=== PATIENT | female | born 1970 | race Caucasian/White ===

== ENCOUNTER 2017-02-22 14:03 | Inpatient (IN) | payer BC ==
[~2017-02-22] VITALS: Ht 157.5 cm; Wt 80.5 kg
[2017-02-22 15:18] LABS: EOSINOPHIL (%) 0.3 % (0-5); EOSINOPHIL COUNT 0.1 K/uL (0-0.3); HEMATOCRIT 31.2 % (36.0-46.0); IMMATURE GRANULOCYTE (%) 0.5 % (0.0-0.7); IMMATURE GRANULOCYTE COUNT 0.1 K/uL; INSTRUMENT ABS NEUTROPHIL CT 14.4 K/uL; LYMPHOCYTE COUNT 0.7 K/uL (1.0-2.8); MCH 28.4 PG (29.0-34.0); MCHC 34.3 G/DL (30.0-36.0); MCV 82.8 FL (83-99); MONOCYTE (%) 5.3 % (3-12); MONOCYTE COUNT 0.9 K/uL (0-0.8); NEUTROPHIL (%) 89.3 % (45-76); NEUTROPHIL COUNT 14.4 K/uL (1.8-6.4); PLATELET COUNT 227 K/uL (156-360); RBC DIS.WIDTH-CV 12.8 % (11.8-14.6); RBC DIS.WIDTH-SD 38.5 % (39-53); RED BLOOD COUNT 3.77 M/uL (3.80-5.20); WHITE BLOOD COUNT 16.1 K/uL (4.1-10.2)
[2017-02-22 15:29] LABS: CHLORIDE 82 mEq/L (99-109); POTASSIUM 4.7 mEq/L (3.7-5.4); SODIUM 140 mEq/L (136-147)
[2017-02-22 15:31] LABS: GLUCOSE 139 mg/dL (70-99)
[2017-02-22 15:32] LABS: ANION GAP 48 MEQ/L (2-14)
[2017-02-22 15:33] LABS: TOTAL BILIRUBIN 0.5 mg/dL (0.0-1.0)
[2017-02-22 15:34] LABS: ALKALINE PHOSPHATASE 48 IU/L (3-129)
[2017-02-22 15:39] LABS: GFR ESTIMATE (CALCULATED) 1 mL/min/
[2017-02-22 15:40] LABS: TROP-I INTERPRETATION INDETERMINATE; TROPONIN-I 0.47 ng/mL (0.0-0.30)
[2017-02-22 15:45] LABS: QUANTITATIVE HCG < 4.0 MIU/ML
[2017-02-22 16:18] LABS: INFLUENZA A VIRAL ANTIGEN NEGATIVE; INFLUENZA B VIRAL ANTIGEN NEGATIVE
[2017-02-22 16:24] LABS: UREA NITROGEN (BUN) 302 mg/dL (9-23)
[2017-02-22] MEDS ORDERED: SUCRALFATE1 GM PO (16:49)
[2017-02-22] MEDS ORDERED: HYDROCHLOROTHIA25 MG PO (16:50)
[2017-02-22] MEDS ORDERED: PRINIVIL10 MG PO (16:50)
[2017-02-22] MEDS ORDERED: ASPERCREME HE70.8 GM TP (16:51)
[2017-02-22] MEDS ORDERED: SALONPAS LARGE1 EACH TD (16:51)
[2017-02-22] MEDS ORDERED: NEOSPORIN + P14.2 GM TP (16:52)
[2017-02-22 18:44] LABS: ADD MIUA? YES; BILIRUBIN NEGATIVE; BLOOD MODERATE; GLUCOSE (STRIP) NEGATIVE; KETONES NEGATIVE; LEUKOCYTES MODERATE; NITRITE NEGATIVE; PROTEIN (STRIP) 100; SPECIFIC GRAVITY 1.018 (1.000-1.030); UROBILINOGEN 0.2 MG/DL (0.2-1.0)
[2017-02-22 18:47] LABS: COLOR DK YELLOW ((YELLOW))
[2017-02-22 19:46] LABS: BACTERIA 3+ /HPF; EPITHELIAL CELLS NONE SEEN /HPF; MUCUS NONE SEEN /LPF; RED BLOOD CELLS 30-40 /HPF (0-5); UCUL ADDED? YES; WHITE BLOOD CELLS TNTC /HPF (0-5)
[2017-02-22 22:50] VITALS: BP 110/55
[2017-02-23 07:51] LABS: POTASSIUM 3.8 mEq/L (3.7-5.4); SODIUM 147 mEq/L (136-147)
[2017-02-23 07:54] LABS: ANION GAP 33 MEQ/L (2-14)
[2017-02-23 07:55] LABS: TROP-I INTERPRETATION INDETERMINATE
[2017-02-23 07:57] LABS: GFR ESTIMATE (CALCULATED) 1 mL/min/
[2017-02-23 07:59] LABS: URIC ACID 21.3 mg/dL (3.1-9.2)
[2017-02-23 08:05] LABS: CHLORIDE 104 mEq/L (99-109); GLUCOSE 72 mg/dL (70-99)
[2017-02-23 08:09] LABS: Estimated Average Glucose 143 mg/dL (70-123); HEMOGLOBIN A1c (GLYCOHEMOGLOB) 6.6 % HGB (Below 5.7)
[2017-02-23 08:10] VITALS: BP 129/61
[2017-02-23 08:15] LABS: HEMATOCRIT 24.3 % (36.0-46.0); MCH 28.9 PG (29.0-34.0); MCHC 33.7 G/DL (30.0-36.0); MCV 85.6 FL (83-99); RBC DIS.WIDTH-CV 12.9 % (11.8-14.6); RBC DIS.WIDTH-SD 40.5 % (39-53); WHITE BLOOD COUNT 13.7 K/uL (4.1-10.2)
[2017-02-23 08:19] LABS: RED BLOOD COUNT 2.84 M/uL (3.80-5.20)
[2017-02-23 08:22] LABS: POTASSIUM 3.8 mEq/L (3.7-5.4); SODIUM 147 mEq/L (136-147)
[2017-02-23 08:25] LABS: ANION GAP 33 MEQ/L (2-14)
[2017-02-23 08:26] LABS: CHLORIDE 104 mEq/L (99-109); GLUCOSE 72 mg/dL (70-99)
[2017-02-23 08:28] LABS: GFR ESTIMATE (CALCULATED) 1 mL/min/
[2017-02-23 08:38] LABS: INTACT PARATHYROID HORMONE 799 pg/mL (10-69)
[2017-02-23 09:09] LABS: C-REACTIVE PROTEIN 5.7 MG/L (0-10); IRON 131 MCG/DL (35-150); SAMPLE HEMOLYSIS CHECK 0; SAMPLE ICTERIC CHECK 0; SAMPLE LIPEMIA CHECK 0
[2017-02-23 09:26] LABS: FERRITIN 947 NG/ML (10-291)
[2017-02-23 09:36] LABS: MEAN PLAT.VOLUME 12.5 uM^3 (9.5-12.4); PLAT.SUFFICIENCY ADEQUATE
[2017-02-23 09:41] LABS: PLATELET COUNT 152 K/uL (156-360)
[2017-02-23 09:50] LABS: UREA NITROGEN (BUN) 228 mg/dL (9-23)
[2017-02-23 09:52] LABS: UREA NITROGEN (BUN) 228 mg/dL (9-23)
[2017-02-23 10:36] LABS: HPCA INDEX 0.11
[2017-02-23 11:04] LABS: HBSG INDEX 0.23
[2017-02-23 11:05] LABS: HEPATITIS B SURFACE ANTIBODY Nonreactive
[2017-02-23 11:47] LABS: ANTI-HEPATITIS B CORE (TOTAL) Nonreactive; HBCT INDEX 0.15
[2017-02-23 12:15] VITALS: BP 138/62
[2017-02-23 16:38] VITALS: BP 135/63
[2017-02-23 19:30] LABS: ANION GAP 36 MEQ/L (2-14); CHLORIDE 104 MEQ/L (99-109); SAMPLE HEMOLYSIS CHECK 1; SAMPLE ICTERIC CHECK 0; SAMPLE LIPEMIA CHECK 0; SODIUM 149 MEQ/L (136-147)
[2017-02-23 19:31] LABS: GLUCOSE 98 mg/dL (70-99)
[2017-02-23 19:32] LABS: GFR ESTIMATE (CALCULATED) 2 mL/min/; UREA NITROGEN (BUN) 255 mg/dL (9-23)
[2017-02-23 19:41] VITALS: BP 147/67
[2017-02-24 00:24] VITALS: BP 117/56
[2017-02-24 04:51] VITALS: BP 129/56
[2017-02-24 07:13] VITALS: BP 138/64
[2017-02-24 08:14] LABS: EOSINOPHIL COUNT 0.4 K/uL (0-0.3); HEMATOCRIT 24.2 % (36.0-46.0); IMMATURE GRANULOCYTE (%) 0.8 % (0.0-0.7); IMMATURE GRANULOCYTE COUNT 0.1 K/uL; INSTRUMENT ABS NEUTROPHIL CT 7.7 K/uL; LYMPHOCYTE COUNT 0.4 K/uL (1.0-2.8); MCH 29.2 PG (29.0-34.0); MCHC 34.3 G/DL (30.0-36.0); MCV 85.2 FL (83-99); MEAN PLAT.VOLUME 12.8 uM^3 (9.5-12.4); MONOCYTE (%) 7.1 % (3-12); MONOCYTE COUNT 0.7 K/uL (0-0.8); NEUTROPHIL (%) 83.8 % (45-76); NEUTROPHIL COUNT 7.7 K/uL (1.8-6.4); PLATELET COUNT 136 K/uL (156-360); RED BLOOD COUNT 2.84 M/uL (3.80-5.20)
[2017-02-24 08:18] LABS: ANION GAP 32 MEQ/L (2-14); CHLORIDE 104 MEQ/L (99-109); GLUCOSE 140 mg/dL (70-99); MAGNESIUM 2.4 mg/dl (1.3-2.7); SAMPLE HEMOLYSIS CHECK 0; SAMPLE ICTERIC CHECK 0; SAMPLE LIPEMIA CHECK 0; SODIUM 154 MEQ/L (136-147)
[2017-02-24 08:19] LABS: GFR ESTIMATE (CALCULATED) 2 mL/min/; POTASSIUM 2.7 MEQ/L (3.7-5.4); UREA NITROGEN (BUN) 228 mg/dL (9-23)
[2017-02-24 08:23] LABS: WHITE BLOOD COUNT 9.2 K/uL (4.1-10.2)
[2017-02-24 10:05] LABS: HPCA INDEX 0.11
[2017-02-24 10:06] LABS: ANTI-HEPATITIS A VIRUS (IGM) Nonreactive; ANTI-HEPATITIS B CORE (IGM) Nonreactive; HAV INDEX 0.11; HBC IgM INDEX 0.06
[2017-02-24 11:49] VITALS: BP 129/69
[2017-02-24 15:34] VITALS: BP 133/62
[2017-02-24 17:41] LABS: CHLORIDE 111 mEq/L (99-109); POTASSIUM 3.1 mEq/L (3.7-5.4); SODIUM 156 mEq/L (136-147)
[2017-02-24 17:42] LABS: GLUCOSE 116 mg/dL (70-99)
[2017-02-24 17:44] LABS: ANION GAP 25 MEQ/L (2-14)
[2017-02-24 17:46] LABS: GFR ESTIMATE (CALCULATED) 3 mL/min/
[2017-02-24 17:58] LABS: UREA NITROGEN (BUN) 185 mg/dL (9-23)
[2017-02-24 20:11] VITALS: BP 134/61
[2017-02-25 01:06] VITALS: BP 110/58
[2017-02-25 05:30] VITALS: BP 141/82
[2017-02-25 08:41] LABS: EOSINOPHIL (%) 4.2 % (0-5); EOSINOPHIL COUNT 0.4 K/uL (0-0.3); HEMATOCRIT 23.7 % (36.0-46.0); IMMATURE GRANULOCYTE COUNT 0.1 K/uL; INSTRUMENT ABS NEUTROPHIL CT 8.4 K/uL; LYMPHOCYTE COUNT 0.6 K/uL (1.0-2.8); MCH 29.1 PG (29.0-34.0); MCHC 32.5 G/DL (30.0-36.0); MEAN PLAT.VOLUME 12.4 uM^3 (9.5-12.4); MONOCYTE (%) 8.1 % (3-12); MONOCYTE COUNT 0.9 K/uL (0-0.8); NEUTROPHIL (%) 80.5 % (45-76); NEUTROPHIL COUNT 8.4 K/uL (1.8-6.4); PLATELET COUNT 117 K/uL (156-360); RBC DIS.WIDTH-CV 13.5 % (11.8-14.6); RBC DIS.WIDTH-SD 44.1 % (39-53); RED BLOOD COUNT 2.65 M/uL (3.80-5.20); WHITE BLOOD COUNT 10.5 K/uL (4.1-10.2)
[2017-02-25 08:43] LABS: MCV 89.4 FL (83-99)
[2017-02-25 08:54] LABS: ANION GAP 21 MEQ/L (2-14); CHLORIDE 111 MEQ/L (99-109); GLUCOSE 93 mg/dL (70-99); SAMPLE HEMOLYSIS CHECK 0; SAMPLE ICTERIC CHECK 0; SAMPLE LIPEMIA CHECK 0; SODIUM 151 MEQ/L (136-147)
[2017-02-25 08:55] LABS: GFR ESTIMATE (CALCULATED) 4 mL/min/; MAGNESIUM 1.5 mg/dl (1.3-2.7); POTASSIUM 3.8 MEQ/L (3.7-5.4); UREA NITROGEN (BUN) 145 mg/dL (9-23)
[2017-02-25 09:00] VITALS: BP 139/70
[2017-02-25 18:55] LABS: CHLORIDE 117 mEq/L (99-109); POTASSIUM 3.9 mEq/L (3.7-5.4); SODIUM 151 mEq/L (136-147)
[2017-02-25 18:57] LABS: GLUCOSE 94 mg/dL (70-99)
[2017-02-25 18:58] LABS: ANION GAP 16 MEQ/L (2-14)
[2017-02-25 19:01] LABS: GFR ESTIMATE (CALCULATED) 6 mL/min/
[2017-02-25 19:04] LABS: UREA NITROGEN (BUN) 121 mg/dL (9-23)
[2017-02-25 20:00] VITALS: BP 148/77
[2017-02-25 23:25] VITALS: BP 153/75
[2017-02-26 03:31] VITALS: BP 142/74
[2017-02-26 08:25] VITALS: BP 121/57
[2017-02-26 08:44] LABS: EOSINOPHIL (%) 4.4 % (0-5); EOSINOPHIL COUNT 0.5 K/uL (0-0.3); HEMATOCRIT 24.4 % (36.0-46.0); IMMATURE GRANULOCYTE (%) 1.8 % (0.0-0.7); IMMATURE GRANULOCYTE COUNT 0.2 K/uL; INSTRUMENT ABS NEUTROPHIL CT 8.4 K/uL; LYMPHOCYTE COUNT 0.8 K/uL (1.0-2.8); MCH 28.6 PG (29.0-34.0); MCHC 31.6 G/DL (30.0-36.0); MCV 90.7 FL (83-99); MEAN PLAT.VOLUME 12.3 uM^3 (9.5-12.4); MONOCYTE (%) 7.5 % (3-12); MONOCYTE COUNT 0.8 K/uL (0-0.8); NEUTROPHIL (%) 78.6 % (45-76); NEUTROPHIL COUNT 8.4 K/uL (1.8-6.4); PLATELET COUNT 117 K/uL (156-360); RBC DIS.WIDTH-CV 13.7 % (11.8-14.6); RBC DIS.WIDTH-SD 45.6 % (39-53); RED BLOOD COUNT 2.69 M/uL (3.80-5.20); WHITE BLOOD COUNT 10.7 K/uL (4.1-10.2)
[2017-02-26 08:56] LABS: CHLORIDE 118 mEq/L (99-109); POTASSIUM 3.8 mEq/L (3.7-5.4); SODIUM 148 mEq/L (136-147)
[2017-02-26 08:57] LABS: MAGNESIUM 1.4 mg/dL (1.3-2.7)
[2017-02-26 08:59] LABS: GLUCOSE 93 mg/dL (70-99)
[2017-02-26 09:00] LABS: ANION GAP 13 MEQ/L (2-14)
[2017-02-26 09:03] LABS: UREA NITROGEN (BUN) 93 mg/dL (9-23)
[2017-02-26 09:07] LABS: GFR ESTIMATE (CALCULATED) 9 mL/min/
[2017-02-26 11:33] LABS: ANTI-NUCLEAR AB SCRN/RFLX(ANA) NONREACTIVE (NONREACTIVE)
[2017-02-26 12:22] VITALS: BP 132/69
[2017-02-26 16:06] VITALS: BP 119/58
[2017-02-26 16:18] LABS: CHLORIDE 114 mEq/L (99-109); POTASSIUM 4.2 mEq/L (3.7-5.4); SODIUM 146 mEq/L (136-147)
[2017-02-26 16:20] LABS: GLUCOSE 104 mg/dL (70-99)
[2017-02-26 16:21] LABS: ANION GAP 13 MEQ/L (2-14)
[2017-02-26 16:24] LABS: GFR ESTIMATE (CALCULATED) 11 mL/min/; UREA NITROGEN (BUN) 80 mg/dL (9-23)
[2017-02-26 20:00] VITALS: BP 165/75
[2017-02-26 23:55] VITALS: BP 133/60
[2017-02-27] VITALS (7 sets, daily range): BP systolic 132–145; BP diastolic 60–95
[2017-02-27 04:50] LABS: INTERNAL CONTROL VALID? YES
[2017-02-27 05:32] LABS: C DIFF TOXIN NEGATIVE (NEGATIVE)
[2017-02-27 05:33] LABS: PROBE CHECK PASS; SPECIMEN PROCESSING CONTROL PASS
[2017-02-27 06:11] LABS: HEMATOCRIT 24.5 % (36.0-46.0); MCH 29.3 PG (29.0-34.0); MCHC 31.8 G/DL (30.0-36.0); MCV 92.1 FL (83-99); NRBC (%) 0.3 /100 WBC (0-0); RBC DIS.WIDTH-CV 13.9 % (11.8-14.6); RBC DIS.WIDTH-SD 46.3 % (39-53); RED BLOOD COUNT 2.66 M/uL (3.80-5.20); WHITE BLOOD COUNT 9.4 K/uL (4.1-10.2)
[2017-02-27 06:46] LABS: CHLORIDE 116 mEq/L (99-109); SODIUM 146 mEq/L (136-147)
[2017-02-27 06:48] LABS: GLUCOSE 96 mg/dL (70-99)
[2017-02-27 06:49] LABS: MAGNESIUM 1.9 mg/dL (1.3-2.7)
[2017-02-27 06:50] LABS: ANION GAP 14 MEQ/L (2-14)
[2017-02-27 06:52] LABS: GFR ESTIMATE (CALCULATED) 15 mL/min/
[2017-02-27 06:53] LABS: UREA NITROGEN (BUN) 63 mg/dL (9-23)
[2017-02-27 07:55] LABS: MEAN PLAT.VOLUME 12.5 uM^3 (9.5-12.4); PLAT.SUFFICIENCY DECREASED; PLATELET COUNT 103 K/uL (156-360)
[2017-02-28 03:39] VITALS: BP 146/65
[2017-02-28 06:45] VITALS: BP 141/69
[2017-02-28 08:32] LABS: HEMATOCRIT 25.6 % (36.0-46.0); MCH 28.3 PG (29.0-34.0); MCHC 30.5 G/DL (30.0-36.0); MCV 92.8 FL (83-99); MEAN PLAT.VOLUME 11.9 uM^3 (9.5-12.4); NRBC (%) 0.9 /100 WBC (0-0); PLATELET COUNT 129 K/uL (156-360); RBC DIS.WIDTH-CV 14.2 % (11.8-14.6); RBC DIS.WIDTH-SD 47.8 % (39-53); RED BLOOD COUNT 2.76 M/uL (3.80-5.20); WHITE BLOOD COUNT 8.8 K/uL (4.1-10.2)
[2017-02-28 09:38] LABS: ANION GAP 15 MEQ/L (2-14); CHLORIDE 115 MEQ/L (99-109); GLUCOSE 95 mg/dL (70-99); MAGNESIUM 1.4 mg/dl (1.3-2.7); SAMPLE HEMOLYSIS CHECK 0; SAMPLE ICTERIC CHECK 0; SAMPLE LIPEMIA CHECK 0; SODIUM 150 MEQ/L (136-147); UREA NITROGEN (BUN) 42 mg/dL (9-23)
[2017-02-28 09:40] LABS: GFR ESTIMATE (CALCULATED) 19 mL/min/; POTASSIUM 3.6 MEQ/L (3.7-5.4)
[2017-02-28 12:09] VITALS: BP 129/66
[2017-02-28 17:12] VITALS: BP 130/68
[2017-02-28 19:12] VITALS: BP 132/65
[2017-02-28 23:33] VITALS: BP 118/58
[2017-03-01 03:39] VITALS: BP 153/68
[2017-03-01 06:52] LABS: HEMATOCRIT 25.6 % (36.0-46.0); MCH 28.4 PG (29.0-34.0); MCHC 30.9 G/DL (30.0-36.0); MCV 92.1 FL (83-99); MEAN PLAT.VOLUME 11.7 uM^3 (9.5-12.4); NRBC (%) 1.1 /100 WBC (0-0); RBC DIS.WIDTH-CV 14.6 % (11.8-14.6); RBC DIS.WIDTH-SD 48.9 % (39-53); RED BLOOD COUNT 2.78 M/uL (3.80-5.20)
[2017-03-01 06:57] LABS: PLATELET COUNT 177 K/uL (156-360); WHITE BLOOD COUNT 11.8 K/uL (4.1-10.2)
[2017-03-01 07:16] LABS: ANION GAP 14 MEQ/L (2-14); CHLORIDE 112 MEQ/L (99-109); GFR ESTIMATE (CALCULATED) 23 mL/min/; GLUCOSE 105 mg/dL (70-99); POTASSIUM 3.7 MEQ/L (3.7-5.4); SAMPLE HEMOLYSIS CHECK 0; SAMPLE ICTERIC CHECK 0; SAMPLE LIPEMIA CHECK 0; SODIUM 145 MEQ/L (136-147); UREA NITROGEN (BUN) 31 mg/dL (9-23)
[2017-03-01 07:30] VITALS: BP 125/78
== END 2017-03-01 12:43 | disposition home or self-care (01) | DRG 683 ==
LOC: EME 14:03 → EDOF 21:03 → 4EAST 21:03 → 2EAST 02-27 13:09
PROVIDERS: Emergency Medicine; Hospitalist; Internal Medicine; Internal Medicine Nephrology; Nurse Practitioner Adult Health
DX: N17.9 Acute kidney failure, unspecified (principal); E66.9 Obesity, unspecified; F05 Delirium due to known physiological condition; I70.1 Atherosclerosis of renal artery; M19.90 Unspecified osteoarthritis, unspecified site; F41.9 Anxiety disorder, unspecified; L40.9 Psoriasis, unspecified; R01.1 Cardiac murmur, unspecified; I87.2 Venous insufficiency (chronic) (peripheral); I12.9 Hypertensive chronic kidney disease with stage 1 through stage 4 chronic kidney disease, or unspecified chronic kidney disease; N18.9 Chronic kidney disease, unspecified; N39.0 Urinary tract infection, site not specified; Z91.19 Patient's noncompliance with other medical treatment and regimen; E87.8 Other disorders of electrolyte and fluid balance, not elsewhere classified; I95.9 Hypotension, unspecified; E87.4 Mixed disorder of acid-base balance; D63.1 Anemia in chronic kidney disease; Z91.15 Patient's noncompliance with renal dialysis; E83.51 Hypocalcemia; E79.0 Hyperuricemia without signs of inflammatory arthritis and tophaceous disease; E87.0 Hyperosmolality and hypernatremia; E87.6 Hypokalemia; L27.0 Generalized skin eruption due to drugs and medicaments taken internally; B96.1 Klebsiella pneumoniae [K. pneumoniae] as the cause of diseases classified elsewhere; B96.20 Unspecified Escherichia coli [E. coli] as the cause of diseases classified elsewhere; E83.42 Hypomagnesemia; E55.9 Vitamin D deficiency, unspecified; T36.1X5A Adverse effect of cephalosporins and other beta-lactam antibiotics, initial encounter; E83.39 Other disorders of phosphorus metabolism; Z68.33 Body mass index [BMI] 33.0-33.9, adult
CPT/HCPCS: 36600; 71020; 74176; 76770; 80048; 80048 91; 80053; 80069; 80074; 81003; 82043; 82272; 82306; 82436; 82550 91; 82570; 82728; 82803; 83036; 83540; 83605; 83735; 83874 90; 83930; 83935; 83970; 84100; 84156; 84300; 84466; 84484; 84550; 84702; 85025; 85027; 85651; 86038; 86063; 86140; 86704; 86706; 86803; 87040; 87077; 87086; 87186; 87340; 87493; 87502; 89190; 93005; 93306; 99281; 99285; J0610; J0692; J0696; J0881; J1644; J3480; J7030; J7050; J7070

== ENCOUNTER 2017-12-27 20:25 | Inpatient (IN) | payer BC ==
[~2017-12-27] VITALS: Ht 160 cm; Wt 77.6 kg
[~2017-12-27 20:25] MED LIST: ASPERCREME HE70.8 GM TP; COZAAR25 MG PO; HYDROCHLOROTHIA25 MG PO; MICRO-K10 ME2 PO; NABI650T PO; NEOSPORIN + P14.2 GM TP; PRINIVIL10 MG PO; SALONPAS LARGE1 EACH TD; SUCRALFATE1 GM PO
[2017-12-28 05:58] VITALS: BP 188/91
[2017-12-28 11:00] VITALS: BP 153/81
[2017-12-28 16:00] VITALS: BP 141/77
[2017-12-28 18:44] VITALS: BP 162/80
[2017-12-28 20:10] VITALS: BP 126/62
[2017-12-28 23:47] VITALS: BP 136/74
[2017-12-29] VITALS (7 sets, daily range): BP systolic 129–192; BP diastolic 64–92
[2017-12-29 05:37] LABS: HEMATOCRIT 30.4 % (36.0-46.0); MCV 85.9 FL (83-99)
[2017-12-29 05:46] LABS: CHLORIDE 109 MEQ/L (99-109); CREATININE 1.4 MG/DL (0.6-1.3); GFR ESTIMATE (CALCULATED) 43 mL/min/; GLUCOSE 132 mg/dL (70-99); POTASSIUM 3.7 MEQ/L (3.7-5.4); SODIUM 138 MEQ/L (136-147); UREA NITROGEN (BUN) 16 mg/dL (9-23)
[2017-12-29 05:54] LABS: HEMOGLOBIN 10.4 G/DL (11.9-15.5)
[2017-12-29] MEDS ORDERED: XARELTO10 MG PO (10:27)
[2017-12-29] MEDS ORDERED: OXYCODONE HCL5 MG PO (10:27)
[2017-12-30 00:18] VITALS: BP 154/76
[2017-12-30 04:10] VITALS: BP 144/88
[2017-12-30 07:30] VITALS: BP 140/74
[2017-12-30 11:38] VITALS: BP 136/65
== END 2017-12-30 13:15 | DRG 470 ==
LOC: ENRESERV 20:25 → 2SOUTH 12-28 05:17 → 3WEST 12-28 10:45 → 2SOUTH 12-28 13:28 → 3WEST 12-30 13:15
PROVIDERS: Orthopaedic Surgery
PROC: 0SR902A Replacement of Right Hip Joint with Metal on Polyethylene Synthetic Substitute, Uncemented, Open Approach (ICD-10-PCS; principal; 2017-12-28)
DX: M16.11 Unilateral primary osteoarthritis, right hip (principal); Q65.89 Other specified congenital deformities of hip; N18.3 Chronic kidney disease, stage 3 (moderate); I12.9 Hypertensive chronic kidney disease with stage 1 through stage 4 chronic kidney disease, or unspecified chronic kidney disease; F41.1 Generalized anxiety disorder; E66.9 Obesity, unspecified; E55.9 Vitamin D deficiency, unspecified; Z68.32 Body mass index [BMI] 32.0-32.9, adult; Z88.6 Allergy status to analgesic agent; Z88.1 Allergy status to other antibiotic agents; Z79.01 Long term (current) use of anticoagulants; Z82.49 Family history of ischemic heart disease and other diseases of the circulatory system
CPT/HCPCS: 73501; 73522; 80048; 85014; 85018; 97530 GP; C1713; J0131; J1100; J1170; J2250; J2405; J7050; Q0175